=== PATIENT | male | born 2000 | race Caucasian/White ===

== ENCOUNTER 2023-11-15 09:09 | Emergency (ER) | payer BC, SELFPAY ==
--- NOTE | ~2023-11-15 | XR_ITS ---
XR wrist RT min 3V 11/15/2023 09:28 Indication: Right wrist pain Procedure: 4 views right wrist Comparison: No prior studies for comparison. Findings: No fracture, subluxation or dislocation. No significant soft tissue abnormality. No foreign bodies. Impression: 1: No acute bone or joint abnormality. Reviewed, dictated and finalized at location [facility] Impression: 1: No acute bone or joint abnormality.
[2023-11-15 09:12] VITALS: BP 137/93; PULSE 97; TEMP 36.8; O2SAT 97
--- NOTE | 2023-11-15 09:18 | ED.UPPEXIN ---
HPI - Extremity Injury (Upper) General Chief Complaint: Extremity Injury, Upper <Carly Reyes PA-C - Last Filed: 11/15/23 12:48> Stated Complaint: fall/wrist injury <Carly Reyes PA-C - Last Filed: 11/15/23 12:48> Time Seen by Provider: 11/15/23 10:47 <Carly Reyes PA-C - Last Filed: 11/15/23 12:48> Source: patient <Carly Reyes PA-C - Last Filed: 11/15/23 12:48> Mode of arrival: ambulatory <Carly Reyes PA-C - Last Filed: 11/15/23 12:48> Limitations: no limitations <Carly Reyes PA-C - Last Filed: 11/15/23 12:48> History of Present Illness HPI narrative: This is a 23-year-old male that presents to the emergency department for right wrist injury sustained just prior to arrival reports he slipped and fell and caught himself with his right wrist. Reports decreased range of motion and pain. No other focal injuries or areas of pain. He did not hit his head or lose consciousness. Denies numbness. <Carly Reyes PA-C - Last Filed: 11/15/23 12:48> Related Data Allergies/Adverse Reactions: Allergies Allergy/AdvReac Type Severity Reaction Status Date / Time doxycycline Allergy Headache Verified 12/09/13 19:24 <Carly Reyes PA-C - Last Filed: 11/15/23 12:48> Review of Systems Review of Systems: CONSTITUTIONAL: Denies fever MUSCULOSKELETAL: Reports joint pain, and myalgia. NEUROLOGIC: Denies numbness <Carly Reyes PA-C - Last Filed: 11/15/23 12:48> All systems reviewed & are unremarkable except as noted in HPI and below <Carly Reyes PA-C - Last Filed: 11/15/23 12:48> PMFSH Past Medical History Medical History: Medical History (Updated 11/15/23 @ 12:48 by Carly Reyes PA-C) History of ulcerative colitis <Carly Reyes PA-C - Last Filed: 11/15/23 12:48> Social History Social History: Social History (Updated 11/15/23 @ 09:19 by Carly Reyes PA-C) Substance use: never <Carly Reyes PA-C - Last Filed: 11/15/23 12:48> Exam Narrative: GENERAL: Well-appearing, well-nourished, and in no acute distress. HEAD: Normocephalic, atraumatic. EYES: EOMI. EXTREMITIES: Mildly decreased active ROM in the right wrist due to pain. No edema or obvious deformity. Normal radial pulse. Normal senation SKIN: Warm, dry, no rash. NEURO: No focal deficits. Alert and oriented x3. PSYCH: Normal mood and affect <Carly Reyes PA-C - Last Filed: 11/15/23 12:48> Course Course Emergency Course: 23-year-old male present to the emergency department for evaluation of a right wrist injury. X-rays were negative for acute fracture dislocation. Patient denies any pain of his shoulder elbow or hand. Patient did feel improved with placement of the Pa wrap. Patient was updated on results of the imaging, pain control for home and on the importance of close follow-up with his primary care physician. All questions concerns were addressed. <Don Pacheco MD - Last Filed: 11/15/23 16:28> Vital Signs Vital signs: Vital Signs Temperature 98.3 F 11/15/23 09:12 Pulse Rate 97 11/15/23 09:12 Blood Pressure 137/93 H 11/15/23 09:12 Pulse Oximetry 97 11/15/23 09:12 Oxygen Delivery Room Air 11/15/23 09:12 Temperature 98.3 F 11/15/23 09:12 Pulse Rate 64 11/15/23 11:38 Respiratory Rate 17 11/15/23 11:38 Blood Pressure 137/93 H 11/15/23 09:12 Pulse Oximetry 100 11/15/23 11:38 Oxygen Delivery Room Air 11/15/23 09:12 <Carly Reyes PA-C - Last Filed: 11/15/23 12:48> Vital Signs Temperature 98.3 F 11/15/23 09:12 Pulse Rate 97 11/15/23 09:12 Blood Pressure 137/93 H 11/15/23 09:12 Pulse Oximetry 97 11/15/23 09:12 Oxygen Delivery Room Air 11/15/23 09:12 Temperature 98.3 F 11/15/23 09:12 Pulse Rate 64 11/15/23 11:38 Respiratory Rate 17 11/15/23 11:38 Blood Pressure 137/93 H 11/15/23 09:12 Pulse Oximetry 100 11/15/23 11:38 [employer]xygen [employer]
[2023-11-15 09:19] VITALS: RESP 16
[2023-11-15 11:03] VITALS: PULSE 67; RESP 19; O2SAT 100
[2023-11-15 11:38] VITALS: PULSE 64; RESP 17; O2SAT 100
== END 2023-11-15 11:40 | disposition home or self-care (01) ==
PROVIDERS: Emergency Provider Emergency Medicine
DX: S69.91XA Unspecified injury of right wrist, hand and finger(s), initial encounter (principal); K51.90 Ulcerative colitis, unspecified, without complications; W01.0XXA Fall on same level from slipping, tripping and stumbling without subsequent striking against object, initial encounter
CPT/HCPCS: 73110; 99283